=== PATIENT | female | born 1950 | race Caucasian/White ===

== ENCOUNTER 2016-10-03 14:14 | Emergency (ER) | payer MEDICARE, OTHER ==
[2016-10-03 14:00] LABS: BASOPHILS 0.3 %; BASOPHILS ABSOLUTE 0.02 10/3/uL (0.0-0.16); EOSINOPHILS 3.5 %; EOSINOPHILS ABSOLUTE 0.25 10/3/uL (0.0-0.53); ER CBC TAT 0 Hrs 05 Mins; HEMATOCRIT 36.2 % (36.0-48.0); HEMOGLOBIN 11.5 g/dL (12.0-16.0); IMMATURE GRANULOCYTES 0.6 %; IMMATURE GRANULOCYTES ABSOLUTE 0.04 10/3/uL (0.0-0.11); LYMPHOCYTES 23.3 %; LYMPHOCYTES ABSOLUTE 1.67 10/3/uL (0.67-4.30); MANUAL DIFF NO %; MEAN CORPUS HGB CONC 31.8 g/dL (32.0-36.0); MEAN CORPUSCULAR HEMOGLOB 28.1 pg (26.0-34.0); MEAN CORPUSCULAR VOLUME 88.5 fL (80-100); MEAN PLATELET VOLUME 11.5 fL (9.2-13.0); MONOCYTES 8.2 %; MONOCYTES ABSOLUTE 0.59 10/3/uL (0.21-1.20); NEUTROPHILS 64.1 %; NEUTROPHILS ABSOLUTE 4.59 10/3/uL (2.02-8.40); PLATELET COUNT 200 10/3/uL (150-400); RBC DISTRIBUTION WIDTH 15.1 % (12.0-16.0); RED CELL COUNT 4.09 10/6/uL (4.0-5.6); WHITE BLOOD CELLS 7.2 10/3/uL (4.5-10.5)
[2016-10-03 14:07] LABS: INTERNATIONAL NORMAL RATI 3.6 UNITS (-); PARTIAL THROMBO TIME 46.9 SEC (22.5-37.2)
[2016-10-03 14:08] LABS: PROTIME (NOT ORD) 35.4 SEC (12.0-14.5)
[~2016-10-03 14:14] MED LIST: ASAB PO; ATV.5 PO; C2 PO; COLCH6 PO; GLUCPH PO; KLOR-CON M2020 MEQ PO; L40 PO; L80 PO; LOP100 PO; LOVENOX120 SC; MOBIC7.5 PO; NITRO-TIME2.5 MG PO; NITROSTAT0.4 MG SL; PHENTERMINE37.5 M1 PO; PLAVIX PO; PRAVACHOL40 MG PO; PRIN20 PO; TOPAMAX50 MG PO; TOPXL50 PO; TYLENOL ARTH650 MG PO
[2016-10-03 14:15] LABS: BUN (BLOOD UREA NITROGEN) 26 MG/DL (6-23); CALCIUM, SERUM 9.1 MG/DL (8.5-10.4); CHEST PAIN PROFILE TAT 0 Hrs 20 Mins; CHLORIDE, SERUM 108 MMOL/L (96-112); CREATININE 0.92 MG/DL (0.55-1.02); GFR AFRICAN AMERICAN 76 ML/MIN (>=60); GFR NON AFRICAN AMERICAN 65 ML/MIN (>=60); GLUCOSE, SERUM 142 MG/DL (60-99); POTASSIUM, SERUM 3.7 MMOL/L (3.5-5.3); SODIUM, SERUM 144 MMOL/L (135-148); TROPONIN I <0.02 NG/ML (<0.05)
[2016-10-03 14:17] LABS: CO2 (CARBON DIOXIDE) 35 MMOL/L (24-34)
[2016-12-23] MEDS ORDERED: ULTRAM50 PO (09:54)
== END 2016-10-03 16:26 | disposition home or self-care (01) ==
LOC: ER 14:14
PROVIDERS: Emergency Medicine
DX: R07.9 Chest pain, unspecified (principal); G89.29 Other chronic pain; I48.91 Unspecified atrial fibrillation; Z95.5 Presence of coronary angioplasty implant and graft; K21.9 Gastro-esophageal reflux disease without esophagitis; Z91.041 Radiographic dye allergy status; Z88.5 Allergy status to narcotic agent; Z88.8 Allergy status to other drugs, medicaments and biological substances; Z79.01 Long term (current) use of anticoagulants; Z79.82 Long term (current) use of aspirin; Z79.899 Other long term (current) drug therapy
CPT/HCPCS: 71010; 80048; 83735; 84484; 85025; 85610; 85730; 93005; 99285